=== PATIENT | female | born 1965 | race Caucasian/White ===

== ENCOUNTER → 2016-07-21 | Outpatient (CLI) | payer BC ==
[2016-07-21 14:25] LABS: Basophils # (A) 0.1 k/uL (0-0.2); Basophils % (A) 1 %; CH 30.6; CHCM 32.3; Eosinophils # (A) 0.4 k/uL (0-0.7); Eosinophils % (A) 4 %; HCT 47.4 % (34.0-46.0); HDW 2.59; HGB 15.1 gm/dL (11.4-16.0); Luc # (Auto) 0.25; Luc % (Auto) 3; Lymphocytes # (A) 2.3 k/uL (1.0-4.8); Lymphocytes % (A) 28 %; MCH 30.3 pg (25.0-35.0); MCHC 31.8 g/dL (31.0-37.0); MCV 95.2 fL (80.0-100.0); Mean Platelet Volume 7.9; Monocytes # (A) 0.4 k/uL (0-1.0); Monocytes % (A) 5 %; Neutrophils # (A) 4.9 k/uL (1.3-7.7); Neutrophils % (A) 59 %; RBC 4.98 m/uL (3.80-5.40); RDW 14.3 % (11.5-15.5); WBC 8.3 k/uL (3.8-10.6); WBC (Perox) 8.26
== END ==
LOC: LABWHC1 14:06
PROVIDERS: ATTEND Obstetrics & Gynecology
DX: Z01.818 Encounter for other preprocedural examination (principal)
CPT/HCPCS: 36415; 85025

== ENCOUNTER 2016-07-28 06:21 | Day surgery (SDC) | payer BC ==
[2016-07-24 14:24] VITALS: BMI 31.8
[~2016-07-28 06:21] MED LIST: DEXAMETHASONE SOD PHOSPHATE 10 MG/ML 1 ML VIAL IV ONE; HYDROmorphone 1 MG/ML 1 ML SYRINGE IVP PRN; LACTATED RINGERS 1,000 ML IV SCH; MIDAZOLAM 2 MG/2 ML VIAL IV PRN; ONDANSETRON 4 MG/2 ML VIAL IVP ONE; Pre Op ABX Message 1 EACH MISC MISCELLANE ONE; SCOPOLAMINE 1.5MG/72HR PATCH TRANSDERM ONE
[2016-07-28 06:51] VITALS: TEMP 97.7
--- NOTE | 2016-07-28 07:30 | HP ---
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 She is to be admitted for cervical cold knife cone biopsy for further diagnosis and treatment. She is postmenopausal with the last menstrual period in 2011. ALLERGIES: None. MEDICATIONS: 1. Aspirin 81 mg q. day. 2. Motrin p.r.n. 3. Omeprazole 10 mg q. day. PAST MEDICAL HISTORY: Reflux, PAST SURGICAL HISTORY: Tonsillectomy. PAST BLOCKER POLISHING HISTORY: She is a 1, para 1 with a history of one vaginal delivery. She had a last menstrual period in 2011. SOCIAL HISTORY: Negative for alcohol. She does smoke 1 pack of cigarettes per day. FAMILY HISTORY: Significant for diabetes and cancer. REVIEW OF SYSTEMS: Negative for vaginal discharge, postmenopausal bleeding, postcoital bleeding, pelvic or abdominal pain. PHYSICAL EXAMINATION: Blood pressure 142/88. Height 5 feet 2 inches. Weight 172 pounds. In general, this is a pleasant female in no apparent distress. HEENT exam is unremarkable with no palpable lymphadenopathy or thyromegaly. The lungs are clear to auscultation bilaterally. The heart is a regular rate and rhythm. The abdomen is soft and nontender with no rebound, no guarding, and no flank pain. Pelvic examination showed normal female external genitalia without lesions or irritation. On bimanual examination, uterus is small, freely mobile and in the midline. There are no palpable cervical masses. ASSESSMENT: A 51-year-old 1, para 1 woman with severe dysplasia on cervical biopsies, NICOLE-3. She is to undergo cervical cold knife cone biopsy. The risks of this procedure have been reviewed with the patient. Risks include but are not limited to bleeding, infection, transfusion, injury to the cervix and nearby structures including uterus, bowel or bladder. There are anesthesia complications and small risks of DVT. The patient understands these risks and agrees to proceed. She is scheduled for the above-named procedure on 07/28/2016.
[2016-07-28] MEDS ORDERED: KETOROLAC 30 MG/ML 1 ML VIAL ONE (07:32)
[2016-07-28] MEDS ORDERED: LIDOCAINE 1% INJ 10MG/ML (20 ML MDV) ONE (07:32)
[2016-07-28] MEDS ORDERED: PROPOFOL 10 MG/ML 20 ML VIAL IV ONE (07:32)
[2016-07-28] MEDS ORDERED: MIDAZOLAM 2 MG/2 ML VIAL ONE (07:32)
[2016-07-28] MEDS ORDERED: fentaNYL (PF) 50 MCG/ML 2 ML AMP ONE (07:32)
[2016-07-28] MEDS ORDERED: LIDOCAINE 1%-EPI 1:100,000 20 ML VIAL SQ ONE (07:53)
[2016-07-28] MEDS ORDERED: FERRIC SUBSULFATE (MONSELS) JAR TOPICAL ONE (07:59)
[2016-07-28] MEDS ORDERED: IODINE/POTASS IOD (LUGOLS) BTL TOPICAL ONE (07:59)
--- NOTE | 2016-07-28 08:01 | P.OP ---
Date of Procedure: 07/28/16 Preoperative Diagnosis: NICOLE-3 Postoperative Diagnosis: Same Anesthesia: MAC, local Surgeon: Shobha Pollard Estimated Blood Loss (ml): 15 IV fluids (ml): 400 Urine output (ml): 25 Pathology: other (Cervical biopsy) Condition: stable Disposition: PACU Operative Findings: Grossly normal-appearing cervix without visible lesions or abnormalities. Description of Procedure: After the patient was met preoperatively and all questions were answered, she was taken to the operating room where anesthetic was administered without incident. She was in positioned, prepped and draped in the dorsal lithotomy position. The bladder was drained for approximately 25 mL of clear urine. Single-sided speculum was placed in the vagina and the cervix was grasped anteriorly with a single-tooth tenaculum. Paracervical block with lidocaine plus epinephrine was placed in the usual fashion. Lugol solution was applied to the cervix to delineate the transformation zone. An 11 blade scalpel was then utilized to circumferentially excise the transformation zone angling in at the base to incorporate the endocervical canal. Specimen was taken in a single piece. The specimen was passed off as pathology. The base of the biopsy site was then cauterized as were the external edges. Monsel solution was then applied and hemostasis was noted. Instruments were then from the vagina and the patient was awoken from anesthetic without incident and transported to recovery area in stable condition. All counts reported to me as correct by the operating room staff.
[2016-07-28 08:58] VITALS: RESP 18
[2016-07-28 09:07] VITALS: BP 140/85; PULSE 75
== END 2016-07-28 09:30 | disposition home or self-care (01) ==
LOC: OR 06:21
PROVIDERS: ATTEND Obstetrics & Gynecology
DX: D06.7 Carcinoma in situ of other parts of cervix (principal); I10 Essential (primary) hypertension; F17.200 Nicotine dependence, unspecified, uncomplicated; F17.210 Nicotine dependence, cigarettes, uncomplicated; Z79.82 Long term (current) use of aspirin; Z79.899 Other long term (current) drug therapy
CPT/HCPCS: 88307; 57520; J2250; J1100; J2405; J2001; J3010; J1885; J2704

== ENCOUNTER 2018-12-19 17:51 | Emergency (ER) | payer BC ==
[2018-12-19 18:09] VITALS: RESP 18; TEMP 99.1
[2018-12-19 18:31] LABS: Basophils # (A) 0.1 k/uL (0-0.2); Basophils % (A) 1 %; Eosinophils # (A) 0.5 k/uL (0-0.7); Eosinophils % (A) 4 %; HCT 45.2 % (34.0-46.0); HGB 14.6 gm/dL (11.4-16.0); Lymphocytes # (A) 2.4 k/uL (1.0-4.8); Lymphocytes % (A) 21 %; MCH 30.2 pg (25.0-35.0); MCHC 32.4 g/dL (31.0-37.0); MCV 93.4 fL (80.0-100.0); Mean Platelet Volume 7.1; Monocytes # (A) 0.5 k/uL (0-1.0); Monocytes % (A) 4 %; Neutrophils # (A) 8.2 k/uL (1.3-7.7); Neutrophils % (A) 70 %; Platelet Count 195 k/uL (150-450); RBC 4.84 m/uL (3.80-5.40); RDW 14.6 % (11.5-15.5); WBC 11.8 k/uL (3.8-10.6)
[2018-12-19 18:39] LABS: INR 0.9 (<1.2); Partial Thromboplastin Time 24.7 sec (22.0-30.0); Prothrombin Time 10.1 sec (9.0-12.0)
[2018-12-19 18:40] LABS: ALT 75 U/L (9-52); AST 120 U/L (14-36); African American GFR (CKD) >90 (>60 ml/min/1.73 sqM); Albumin 4.7 g/dL (3.5-5.0); Alkaline Phosphatase 74 U/L (38-126); Anion Gap 11 mmol/L; Blood Urea Nitrogen 20 mg/dL (7-17); Calcium 10.2 mg/dL (8.4-10.2); Carbon Dioxide 30 mmol/L (22-30); Chloride 103 mmol/L (98-107); Glucose 99 mg/dL (74-99); Potassium 3.9 mmol/L (3.5-5.1); Sodium 144 mmol/L (137-145); Total Bilirubin 0.7 mg/dL (0.2-1.3); Total Protein 8.1 g/dL (6.3-8.2)
--- NOTE | 2018-12-19 19:06 | ED ---
General Adult HPI - General Chief complaint: GI Bleed Stated complaint: abdominal pain/rectal bleeding Time Seen by Provider: 12/19/18 18:12 Source: patient Mode of arrival: ambulatory Limitations: no limitations - History of Present Illness Initial comments: Dictation was produced using [employer] dictation software. please excuse any gra mmatical, word or spelling errors. Chief Complaint: 53-year-old female with bright red blood per rectum and left lower quadrant abdominal pain. History of Present Illness: Patient's 53-year-old female she has chief complaint today of bright blood per rectum. Patient states her symptoms began yesterday. She began feeling slightly lightheaded. Patient had multiple episodes of light red blood per rectum including loose blood and blood clots. She also has left lower quadrant abdominal cramping. Patient has no history of diverticulitis. Denies any fever, chills or night sweats. The ROS documented in this emergency department record has been reviewed and confirmed by me. Those systems with pertinent positive or negative responses have been documented in the HPI. All other systems are other negative and/or noncontributory. PHYSICAL EXAM: General Impression: Alert and oriented x3, not in acute distress HEENT: Normocephalic atraumatic, extra-ocular movements intact, pupils equal and reactive to light bilaterally, mucous membranes moist. Cardiovascular: Heart regular rate and rhythm, S1&S2 audible, no murmurs, rubs or gallops Chest: Lungs clear to auscultation bilaterally, no rhonchi, no wheeze, no rales Abdomen: Tenderness to the left lower quadrant with palpation, positive bowel sounds Musculoskeletal: Pulses present and equal in all extremities, no peripheral edema Motor: no focal deficits noted Neurological: CN II-XII grossly intact, no focal motor or sensory deficits noted Skin: Intact with no visualized rashes Psych: Normal affect and mood Rectal exam: No fissures no hemorrhoids, digital rectal exam is positive for gross blood, no palpable mass in the rectal vault. Laboratory evaluation obtained. Mild symptoms along 0.8, hemoglobin stable at 14.6. Coag panel unremarkable. panel is nonacute. so, blows is positive. et scan of the abdomen and pelvis with contrast shows diverticulitis. she reevaluated bedside found with stable medical condition. patient will be discharged with prescription for antibiotics, analgesics and antiemetics. patient told to return to emergency department with constitutional symptoms and worsening abdominal pain otherwise she is distracted to follow-up with her primary care physician sometime later this week. ED course: 53-year-old female presents with bright red blood per rectum and left lower quadrant abdominal pain. Vital signs upon arrival are within acceptable limits. Given patient's left lower quadrant abdominal pain there is concern for bleeding diverticulitis. - Related Data Home Medications Medication Instructions Recorded Confirmed Hydrochlorothiazide [Hydrodiuril] 25 mg PO DAILY 12/19/18 12/19/18 Omeprazole [PriLOSEC] 20 mg PO DAILY PRN 12/19/18 12/19/18 Previous Rx's Medication Instructions Recorded Ciprofloxacin HCl 500 mg PO BID 14 Days #28 tab 12/19/18 HYDROcodone/APAP 5-325MG [Henderson 1 tab PO Q6HR PRN 3 Days #12 tab 12/19/18 5-325] Ondansetron Odt [Zofran Odt] 4 mg PO Q8HR PRN #12 tab 12/19/18 metroNIDAZOLE [Flagyl] 500 mg PO TID 14 Days #42 tab 12/19/18 Allergies Allergy/AdvReac Type Severity Reaction Status Date / Time adhesive tape AdvReac PEELED SKIN Verified 12/19/18 18:38 Review of Systems ROS Statement: Those systems with pertinent positive or pertinent negative responses have been documented in the HPI. ROS Other: All systems not noted in ROS Statement are negative. Past Medical History Past Medical History: GERD/Reflux History of Any Multi-Drug Resistant Organisms: None Reported Past Surgical History: Adenoidectomy, Orthopedic Surgery, Tonsillectomy Additional Past Surgical History / Comment(s): LEFT ANKLE ORIF Past Anesthesia/Blood Transfusion Reactions: Postoperative Nausea & Vomiting (PONV) Additional Past Anesthesia/Blood Transfusion Reaction / Comment(s): POST OP ORIF Past Psychological History: No Psychological Hx Reported Smoking Status: Current every day smoker Past Alcohol Use History: Occasional Past Drug Use History: Marijuana - Past Family History Father Family Medical History: Cancer Additional Family Medical History / Comment(s): MULT. MYELOMA Brother(s) Family Medical History: Cancer Additional Family Medical History / Comment(s): LYMPHOMA General Exam Limitations: no limitations Course Vital Signs 12/19/18 12/19/18 18:07 18:59 Temperature 99.1 F Pulse Rate 90 85 Respiratory 18 18 Rate Blood Pressure 127/77 134/82 O2 Sat by Pulse 95 95 Oximetry Medical Decision Making - Lab Data Result diagrams: 12/19/18 18:21 12/19/18 18:21 Lab Results 12/19/18 12/19/18 12/19/18 Range/Units 18:21 18:21 18:21 WBC 11.8 H (3.8-10.6) k/uL RBC 4.84 (3.80-5.40) m/uL Hgb 14.6 (11.4-16.0) gm/dL Hct 45.2 (34.0-46.0) % MCV 93.4 (80.0-100.0) fL MCH 30.2 (25.0-35.0) pg MCHC 32.4 (31.0-37.0) g/dL RDW 14.6 (11.5-15.5) % Plt Count 195 (150-450) k/uL Neutrophils % 70 % Lymphocytes % 21 % Monocytes % 4 % Eosinophils % 4 % Basophils % 1 % Neutrophils # 8.2 H (1.3-7.7) k/uL Lymphocytes # 2.4 (1.0-4.8) k/uL Monocytes # 0.5 (0-1.0) k/uL Eosinophils # 0.5 (0-0.7) k/uL Basophils # 0.1 (0-0.2) k/uL PT 10.1 (9.0-12.0) sec INR 0.9 (<1.2) APTT 24.7 (22.0-30.0) sec Sodium 144 (137-145) mmol/L Potassium 3.9 (3.5-5.1) mmol/L Chloride 103 (98-107) mmol/L Carbon Dioxide 30 (22-30) mmol/L Anion Gap 11 mmol/L BUN 20 H (7-17) mg/dL Creatinine 0.64 (0.52-1.04) mg/dL Est GFR (CKD-EPI)AfAm >90 (>60 ml/min/1.73 sqM) Est GFR (CKD-EPI)NonAf >90 (>60 ml/min/1.73 sqM) Glucose 99 (74-99) mg/dL Calcium 10.2 (8.4-10.2) mg/dL Total Bilirubin 0.7 (0.2-1.3) mg/dL AST 120 H (14-36) U/L ALT 75 H (9-52) U/L Alkaline Phosphatase 74 (38-126) U/L Troponin I (0.000-0.034) ng/mL Total Protein 8.1 (6.3-8.2) g/dL Albumin 4.7 (3.5-5.0) g/dL Stool Occult Blood (Negative) Blood Type Blood Type Confirm Blood Type Recheck Antibody Screen Spec Expiration Date 12/19/18 12/19/18 12/19/18 Range/Units 18:21 18:21 18:43 WBC (3.8-10.6) k/uL RBC (3.80-5.40) m/uL Hgb (11.4-16.0) gm/dL Hct (34.0-46.0) % MCV (80.0-100.0) fL MCH (25.0-35.0) pg MCHC (31.0-37.0) g/dL RDW (11.5-15.5) % Plt Count (150-450) k/uL Neutrophils % % Lymphocytes % % Monocytes % % Eosinophils % % Basophils % % Neutrophils # (1.3-7.7) k/uL Lymphocytes # (1.0-4.8) k/uL Monocytes # (0-1.0) k/uL Eosinophils # (0-0.7) k/uL Basophils # (0-0.2) k/uL PT (9.0-12.0) sec INR (<1.2) APTT (22.0-30.0) sec Sodium (137-145) mmol/L Potassium (3.5-5.1) mmol/L Chloride (98-107) mmol/L Carbon Dioxide (22-30) mmol/L Anion Gap mmol/L BUN (7-17) mg/dL Creatinine (0.52-1.04) mg/dL Est GFR (CKD-EPI)AfAm (>60 ml/min/1.73 sqM) Est GFR (CKD-EPI)NonAf (>60 ml/min/1.73 sqM) Glucose (74-99) mg/dL Calcium (8.4-10.2) mg/dL Total Bilirubin (0.2-1.3) mg/dL AST (14-36) U/L ALT (9-52) U/L Alkaline Phosphatase (38-126) U/L Troponin I <0.012 (0.000-0.034) ng/mL Total Protein (6.3-8.2) g/dL Albumin (3.5-5.0) g/dL Stool Occult Blood Positive H (Negative) Blood Type A Positive Blood Type Confirm Blood Type Recheck CABO Indicated Antibody Screen NEGATIVE Spec Expiration Date 12/22/2018 - 232012/19/18 Range/Units 19:36 WBC (3.8-10.6) k/uL RBC (3.80-5.40) m/uL Hgb (11.4-16.0) gm/dL Hct (34.0-46.0) % MCV (80.0-100.0) fL MCH (25.0-35.0) pg MCHC (31.0-37.0) g/dL RDW (11.5-15.5) % Plt Count (150-450) k/uL Neutrophils % % Lymphocytes % % Monocytes % % Eosinophils % % Basophils % % Neutrophils # (1.3-7.7) k/uL Lymphocytes # (1.0-4.8) k/uL Monocytes # (0-1.0) k/uL Eosinophils # (0-0.7) k/uL Basophils # (0-0.2) k/uL PT (9.0-12.0) sec INR (<1.2) APTT (22.0-30.0) sec Sodium (137-145) mmol/L Potassium (3.5-5.1) mmol/L Chloride (98-107) mmol/L Carbon Dioxide (22-30) mmol/L Anion Gap mmol/L BUN (7-17) mg/dL Creatinine (0.52-1.04) mg/dL Est GFR (CKD-EPI)AfAm (>60 ml/min/1.73 sqM) Est GFR (CKD-EPI)NonAf (>60 ml/min/1.73 sqM) Glucose (74-99) mg/dL Calcium (8.4-10.2) mg/dL Total Bilirubin (0.2-1.3) mg/dL AST (14-36) U/L ALT (9-52) U/L Alkaline Phosphatase (38-126) U/L Troponin I (0.000-0.034) ng/mL Total Protein (6.3-8.2) g/dL Albumin (3.5-5.0) g/dL Stool Occult Blood (Negative) Blood Type Blood Type Confirm A Positive Blood Type Recheck Antibody Screen Spec Expiration Date Disposition Clinical Impression: Diverticulitis of colon with bleeding Disposition: HOME SELF-CARE Condition: Good Instructions (If sedation given, give patient instructions): Gastrointestinal Bleeding (ED), Diverticulitis (ED) Prescriptions: Ciprofloxacin HCl 500 mg PO BID 14 Days #28 tab metroNIDAZOLE [Flagyl] 500 mg PO TID 14 Days #42 tab HYDROcodone/APAP 5-325MG [Henderson 5-325] 1 tab PO Q6HR PRN 3 Days #12 tab PRN Reason: Severe Pain Ondansetron Odt [Zofran Odt] 4 mg PO Q8HR PRN #12 tab PRN Reason: Nausea Is patient prescribed a controlled substance at d/c from ED?: Yes If prescribed controlled substance>3 days was MAPS reviewed?: Prescribed <3 Days Referrals: Orion Jernigan DO [Primary Care Provider] - 1-2 days Dave Upton MD [STAFF PHYSICIAN] - 1-2 days Time of Disposition: 20:41
--- NOTE | 2018-12-19 19:51 | CT ---
EXAMINATION TYPE: CT abdomen pelvis w con DATE OF EXAM: 12/19/2018 COMPARISON: None HISTORY: Abdomen pain & rectal bleeding-bright red CT DLP: 1041.2 mGycm Automated exposure control for dose reduction was used. TECHNIQUE: Helical acquisition of images was performed from the lung bases through the pelvis. CONTRAST: Performed without Oral Contrast and with IV Contrast, patient injected with 100 mL of Isovue 300. FINDINGS: There is mild subsegmental atelectasis at the left lung base. There is no pleural effusion. Heart siz e is normal. Stomach liver spleen pancreas gallbladder appear normal. Bile ducts are not dilated. There is no adre nal mass. Kidneys show satisfactory contrast opacification. There is no hydronephrosis. Ureters are n ot dilated. Appendix appears normal. Bladder distends smoothly. There is no inguinal hernia. There is small amount of free fluid in the pe lvis. There is fat stranding and wall thickening around the proximal sigmoid colon. I see no signific ant diverticular disease. There is no evidence of free air. There is no evidence of a bowel obstruction. Lumbar spine appears intact. Bony pelvis is intact. IMPRESSION: PROXIMAL SIGMOID COLON WALL THICKENING AND PERICOLIC EDEMA CONSISTENT WITH DIVERTICULITIS OR ACUTE CO LITIS. MINIMAL FREE FLUID. NO ABSCESS. NORMAL APPENDIX.
[2018-12-19 20:54] VITALS: BP 147/81; PULSE 84
== END 2018-12-19 20:54 | disposition home or self-care (01) ==
LOC: EC 17:51
DX: K57.33 Diverticulitis of large intestine without perforation or abscess with bleeding (principal); K21.9 Gastro-esophageal reflux disease without esophagitis; F17.200 Nicotine dependence, unspecified, uncomplicated; Z79.899 Other long term (current) drug therapy; Z91.048 Other nonmedicinal substance allergy status
CPT/HCPCS: 36415; 86900; 86901; 80053; 84484; 85025; 85610; 85730; 86850; 82272; 74177; 99284; Q9967

== ENCOUNTER 2019-02-09 04:51 | Inpatient (IN) | payer BC ==
[2019-02-09 05:03] LABS: Glucose,Whole Blood 146 mg/dL (75-99)
[2019-02-09] MEDS ORDERED: SODIUM CHLORIDE 0.9% 1,000 ML IV STA (05:10)
[2019-02-09 05:22] LABS: Basophils % (A) 0 %; Eosinophils # (A) 0.2 k/uL (0-0.7); Eosinophils % (A) 2 %; HCT 40.8 % (34.0-46.0); HGB 13.8 gm/dL (11.4-16.0); Lymphocytes # (A) 1.8 k/uL (1.0-4.8); Lymphocytes % (A) 19 %; MCH 30.4 pg (25.0-35.0); MCHC 33.7 g/dL (31.0-37.0); MCV 90.1 fL (80.0-100.0); Mean Platelet Volume 6.5; Monocytes # (A) 0.4 k/uL (0-1.0); Monocytes % (A) 4 %; Neutrophils # (A) 6.7 k/uL (1.3-7.7); Neutrophils % (A) 73 %; Platelet Count 196 k/uL (150-450); RBC 4.53 m/uL (3.80-5.40); RDW 14.1 % (11.5-15.5); WBC 9.2 k/uL (3.8-10.6)
--- NOTE | 2019-02-09 05:23 | ED ---
Seizure HPI - General Chief Complaint: Seizure Stated Complaint: Altered Mental Status Time Seen by Provider: 02/09/19 04:54 Source: patient Mode of arrival: EMS Limitations: no limitations - History of Present Illness Initial Comments: Cher is a 83-year-old female who presents the ER today via EMS after a possible seizure at home. Patient has minimal recall of events leading up to hospitalization and in fact minimal recall of events of yesterday evening. History was provided primarily by her at bedside. reports that yesterday evening was a normal evening for them, she came home from work a little after 4 PM, they had dinner and then she had 5 or 6 beers which is not atypical. He reports that around 10 PM he went to bed and Cher remained on the couch. Around 4 AM their daughter woke him up stating that she found her mom laying on the floor with irregular breathing and she could not wake her up. attempted to wake the patient up and reports that for approximately 5 minutes she had irregular breathing and would not wake up. EMS was contacted. reports that once Cher woke up she seemed confused and disoriented however she gradually became more awake and alert. Patient has no history of seizure disorder. She reports she drinks alcohol regularly but not every day, she has no history of withdraw symptoms. - Related Data Home Medications Medication Instructions Recorded Confirmed Hydrochlorothiazide [Hydrodiuril] 25 mg PO DAILY 12/19/18 12/19/18 Omeprazole [PriLOSEC] 20 mg PO DAILY PRN 12/19/18 12/19/18 Allergies Allergy/AdvReac Type Severity Reaction Status Date / Time adhesive tape AdvReac PEELED SKIN Verified 02/09/19 05:03 Review of Systems ROS Statement: Those systems with pertinent positive or pertinent negative responses have been documented in the HPI. ROS Other: All systems not noted in ROS Statement are negative. Past Medical History Past Medical History: GERD/Reflux History of Any Multi-Drug Resistant Organisms: None Reported Past Surgical History: Adenoidectomy, Orthopedic Surgery, Tonsillectomy Additional Past Surgical History / Comment(s): LEFT ANKLE ORIF Past Anesthesia/Blood Transfusion Reactions: Postoperative Nausea & Vomiting (PONV) Additional Past Anesthesia/Blood Transfusion Reaction / Comment(s): POST OP ORIF Past Psychological History: No Psychological Hx Reported Smoking Status: Current every day smoker Past Alcohol Use History: Occasional Past Drug Use History: Marijuana - Past Family History Father Family Medical History: Cancer Additional Family Medical History / Comment(s): MULT. MYELOMA Brother(s) Family Medical History: Cancer Additional Family Medical History / Comment(s): LYMPHOMA General Exam - General Exam Comments Initial Comments: Physical Exam GENERAL: Patient is well-developed and well-nourished. Patient is nontoxic and well- hydrated and is in no distress. HENT: Normocephalic, Atraumatic. Normal dentition No evidence of tongue biting EYES: PERRL, EOMI PULMONARY: Unlabored respirations. No audible rales rhonchi or wheezing was noted. CARDIOVASCULAR: There is a regular rate and rhythm without any murmurs gallops or rubs. ABDOMEN: Soft and nontender with normal bowel sounds. SKIN: Skin is clear with no lesions or rashes and otherwise unremarkable. : Deferred Patient had loss of bladder continence NEUROLOGIC: Patient is alert and oriented x3. Moving all extremities spontaneously MUSCULOSKELETAL: Normal extremities with adequate strength and full range of motion. No lower extremity swelling or edema. No calf tenderness. PSYCHIATRIC: Normal psychiatric evaluation. Limitations: no limitations Course Vital Signs 02/09/19 04:54 Temperature 98.5 F Pulse Rate 99 Respiratory 18 Rate Blood Pressure 145/88 O2 Sat by Pulse 95 Oximetry Medical Decision Making - Medical Decision Making The patient was seen and evaluated, history is obtained from the EMS crew and at bedside. Patient is postictal and has minimal recall of the event. Patient with no history of seizures seems to have had a seizure during the night, uncertain of when onset was but has been witnessed 3-5 minutes of seizure activity. Labs and imaging ordered CT head with no acute findings Labs consistent with seizure activity, patient has elevated lactic acid likely secondary to muscle activity during seizure. Additional IV fluids ordered. Patient is mildly hypokalemic, by mouth replacement was ordered. Since primary care physician Dr. Jernigan has no admission preference here, patient will be admitted to medicine on-call. Patient care was discussed with Dr. Jenkins who agrees with plan for admission, IV fluids, seizure precautions, neurology consult. The patient's lactic acid is elevated at greater than 6 however this is secondary to seizure activity and not sepsis or hypoperfusion at this time. I do not feel the patient warrants admission to the ICU. - Lab Data Result diagrams: 02/09/19 04:57 02/09/19 04:57 Lab Results 02/09/19 02/09/19 02/09/19 Range/Units 04:57 04:57 04:57 WBC 9.2 (3.8-10.6) k/uL RBC 4.53 (3.80-5.40) m/uL Hgb 13.8 (11.4-16.0) gm/dL Hct 40.8 (34.0-46.0) % MCV 90.1 (80.0-100.0) fL MCH 30.4 (25.0-35.0) pg MCHC 33.7 (31.0-37.0) g/dL RDW 14.1 (11.5-15.5) % Plt Count 196 (150-450) k/uL Neutrophils % 73 % Lymphocytes % 19 % Monocytes % 4 % Eosinophils % 2 % Basophils % 0 % Neutrophils # 6.7 (1.3-7.7) k/uL Lymphocytes # 1.8 (1.0-4.8) k/uL Monocytes # 0.4 (0-1.0) k/uL Eosinophils # 0.2 (0-0.7) k/uL Basophils # 0.0 (0-0.2) k/uL Sodium 134 L (137-145) mmol/L Potassium 3.4 L (3.5-5.1) mmol/L Chloride 96 L (98-107) mmol/L Carbon Dioxide 18 L (22-30) mmol/L Anion Gap 20 mmol/L BUN 13 (7-17) mg/dL Creatinine 0.63 (0.52-1.04) mg/dL Est GFR (CKD-EPI)AfAm >90 (>60 ml/min/1.73 sqM) Est GFR (CKD-EPI)NonAf >90 (>60 ml/min/1.73 sqM) Glucose 145 H (74-99) mg/dL POC Glucose (mg/dL) (75-99) mg/dL POC Glu Mobile Device Developer ID Plasma Lactic Acid Raj 6.3 H* (0.7-2.0) mmol/L Calcium 9.5 (8.4-10.2) mg/dL Total Bilirubin 0.4 (0.2-1.3) mg/dL AST 58 H (14-36) U/L ALT 52 (9-52) U/L Alkaline Phosphatase 70 (38-126) U/L Total Protein 7.8 (6.3-8.2) g/dL Albumin 4.6 (3.5-5.0) g/dL Urine Color Urine Appearance (Clear) Urine pH (5.0-8.0) Ur Specific Conklin (1.001-1.035) Urine Protein (Negative) Urine Glucose (UA) (Negative) Urine Ketones (Negative) Urine Blood (Negative) Urine Nitrite (Negative) Urine Bilirubin (Negative) Urine Urobilinogen (<2.0) mg/dL Ur Leukocyte Esterase (Negative) Urine RBC (0-5) /hpf Urine WBC (0-5) /hpf Ur Squamous Epith Cells (0-4) /hpf Urine Mucus (None) /hpf Urine Opiates Screen (NotDetected) Ur Oxycodone Screen (NotDetected) Urine Methadone Screen (NotDetected) Ur Propoxyphene Screen (NotDetected) Ur Barbiturates Screen (NotDetected) U Tricyclic Antidepress (NotDetected) Ur Phencyclidine Scrn (NotDetected) Ur Amphetamines Screen (NotDetected) U Methamphetamines Scrn (NotDetected) U Benzodiazepines Scrn (NotDetected) Urine Cocaine Screen (NotDetected) U Marijuana (THC) Screen (NotDetected) 02/09/19 02/09/19 02/09/19 Range/Units 05:00 05:23 05:23 WBC (3.8-10.6) k/uL RBC (3.80-5.40) m/uL Hgb (11.4-16.0) gm/dL Hct (34.0-46.0) % MCV (80.0-100.0) fL MCH (25.0-35.0) pg MCHC (31.0-37.0) g/dL RDW (11.5-15.5) % Plt Count (150-450) k/uL Neutrophils % % Lymphocytes % % Monocytes % % Eosinophils % % Basophils % % Neutrophils # (1.3-7.7) k/uL Lymphocytes # (1.0-4.8) k/uL Monocytes # (0-1.0) k/uL Eosinophils # (0-0.7) k/uL Basophils # (0-0.2) k/uL Sodium (137-145) mmol/L Potassium (3.5-5.1) mmol/L Chloride (98-107) mmol/L Carbon Dioxide (22-30) mmol/L Anion Gap mmol/L BUN (7-17) mg/dL Creatinine (0.52-1.04) mg/dL Est GFR (CKD-EPI)AfAm (>60 ml/min/1.73 sqM) Est GFR (CKD-EPI)NonAf (>60 ml/min/1.73 sqM) Glucose (74-99) mg/dL POC Glucose (mg/dL) 146 H (75-99) mg/dL POC Glu Mobile Device Developer ID Nyasia Rooney Plasma Lactic Acid Raj (0.7-2.0) mmol/L Calcium (8.4-10.2) mg/dL Total Bilirubin (0.2-1.3) mg/dL AST (14-36) U/L ALT (9-52) U/L Alkaline Phosphatase (38-126) U/L Total Protein (6.3-8.2) g/dL Albumin (3.5-5.0) g/dL Urine Color Light Yellow Urine Appearance Clear (Clear) Urine pH 5.5 (5.0-8.0) Ur Specific Conklin 1.017 (1.001-1.035) Urine Protein Trace H (Negative) Urine Glucose (UA) Negative (Negative) Urine Ketones 1+ H (Negative) Urine Blood Trace H (Negative) Urine Nitrite Negative (Negative) Urine Bilirubin Negative (Negative) Urine Urobilinogen <2.0 (<2.0) mg/dL Ur Leukocyte Esterase Negative (Negative) Urine RBC 1 (0-5) /hpf Urine WBC <1 (0-5) /hpf Ur Squamous Epith Cells 1 (0-4) /hpf Urine Mucus Occasional H (None) /hpf Urine Opiates Screen Not Detected (NotDetected) Ur Oxycodone Screen Not Detected (NotDetected) Urine Methadone Screen Not Detected (NotDetected) Ur Propoxyphene Screen Not Detected (NotDetected) Ur Barbiturates Screen Not Detected (NotDetected) U Tricyclic Antidepress Not Detected (NotDetected) Ur Phencyclidine Scrn Not Detected (NotDetected) Ur Amphetamines Screen Not Detected (NotDetected) U Methamphetamines Scrn Not Detected (NotDetected) U Benzodiazepines Scrn Not Detected (NotDetected) Urine Cocaine Screen Not Detected (NotDetected) U Marijuana (THC) Screen Detected H (NotDetected) - EKG Data EKG Comments: KG was obtained due to complaint of new onset seizure. EKG was obtained at 4:59 AM, rate is 95 rhythm is sinus there is normal axis, there are normal intervals, WA 140, QRS 96, QTC is 459. There are no acute ST elevations mild ST depressions laterally. However patient is having no chest pain. Disposition Clinical Impression: New onset seizure Disposition: ADMITTED IP TO THIS HOSP Condition: Stable Referrals: Orion Jernigan DO [Primary Care Provider] - 1-2 days
[2019-02-09 05:46] LABS: ALT 52 U/L (9-52); AST 58 U/L (14-36); African American GFR (CKD) >90 (>60 ml/min/1.73 sqM); Albumin 4.6 g/dL (3.5-5.0); Alkaline Phosphatase 70 U/L (38-126); Anion Gap 20 mmol/L; Blood Urea Nitrogen 13 mg/dL (7-17); Calcium 9.5 mg/dL (8.4-10.2); Carbon Dioxide 18 mmol/L (22-30); Chloride 96 mmol/L (98-107); Glucose 145 mg/dL (74-99); Non-African American GFR(CKD) >90 (>60 ml/min/1.73 sqM); Potassium 3.4 mmol/L (3.5-5.1); Sodium 134 mmol/L (137-145); Total Bilirubin 0.4 mg/dL (0.2-1.3); Total Protein 7.8 g/dL (6.3-8.2)
[2019-02-09 05:47] LABS: Appearance,Urine Clear (Clear); Bilirubin,Urine Negative (Negative); Blood,Urine Trace (Negative); Color,Urine Light Yellow; Glucose,Urine (UA) Negative (Negative); Ketones,Urine 1+ (Negative); Leukocyte Esterase,Urine Negative (Negative); Mucus,Urine Occasional /hpf; Nitrite,Urine Negative (Negative); PH, Urine 5.5 (5.0-8.0); Protein,Urine Trace (Negative); RBC,Urine 1 /hpf (0-5); Specific Gravity,Urine 1.017 (1.001-1.035); Squamous Epithelial Cell,Urine 1 /hpf (0-4); Urobilinogen,Urine <2.0 mg/dL (<2.0); WBC,Urine <1 /hpf (0-5)
--- NOTE | 2019-02-09 05:58 | CT ---
EXAM: CT Head Without Intravenous Contrast CLINICAL HISTORY: Seizure activity. TECHNIQUE: Axial computed tomography images of the head/brain without intravenous contrast. CTDI is 49.27 mGy and DLP is 1005.4 mGy-cm. This CT exam was performed using one or more of the following dose reduction techniques: automated exposure control, adjustment of the mA and/or kV according to patient size, and/or use of iterative reconstruction technique. COMPARISON: No relevant prior studies available. FINDINGS: Brain: Unremarkable. No hemorrhage. No significant white matter disease. No edema. Ventricles: Unremarkable. No ventriculomegaly. Bones/joints: Unremarkable. No acute fracture. Soft tissues: Unremarkable. Sinuses: Unremarkable as visualized. No acute sinusitis. Mastoid air cells: Unremarkable as visualized. No mastoid effusion. IMPRESSION: No evidence of acute intracranial pathology.
[2019-02-09] MEDS ORDERED: Potassium Replacement Protocol 1 EACH MISC MISCELLANE PRN (06:09)
[2019-02-09 06:15] LABS: Amphetamine Screen,Urine Not Detected (NotDetected); Barbiturate Screen,Urine Not Detected (NotDetected); Benzodiazepines Screen,Urine Not Detected (NotDetected); Cocaine Screen,Urine Not Detected (NotDetected); Methadone Screen, Urine Not Detected (NotDetected); Opiate Screen,Urine Not Detected (NotDetected); Oxycodone Screen, Urine Not Detected (NotDetected); Phencyclidine Screen,Urine Not Detected (NotDetected); Tricyclic Antidepressant,Urine Not Detected (NotDetected); Urn Cannabinoid Scrn Detected (NotDetected)
[2019-02-09] MEDS ORDERED: SODIUM CHLORIDE 0.9% 2,000 ML IV ONE (06:23)
[2019-02-09] MEDS ORDERED: NALOXONE 0.4 MG/ML 1 ML VIAL IV PRN (06:33)
[2019-02-09] MEDS: POTASSIUM CHLORIDE ER 20 MEQ TAB.ER PO SCH ×2 (08:47→11:57)
[2019-02-09] MEDS ORDERED: PNEUMOCOCCAL VACC-PNEUMOVAX 23 25 MCG/0.5 ML VIAL IM ONE (09:44)
[2019-02-09] MEDS ORDERED: INFLUENZA VACCINE (6 MOS+) 60 MCG/0.5 ML SYRINGE IM ONE (09:44)
[2019-02-09] MEDS: SODIUM CHLORIDE 0.9% 1,000 ML IV SCH ×2 (11:58→17:03)
[2019-02-09] MEDS ORDERED: LORazepam 2 MG/ML INJ IV PRN ×3 (12:04)
--- NOTE | 2019-02-09 12:06 | P.HPIM ---
History of Present Illness H&P Date: 02/09/19 Chief Complaint: Altered mental status 53-year-old female with PMH of hypertension and diverticulosis presents to the ED for altered mental status. Patient does not remember any of the events prior to admission. Patient states the last thing that she remembers was laying down on the couch and watching [place]. Apparently, her daughter heard a thump and attended to her mother. Patient was found down with irregular breathing. Patient also reports that she had one episode of bladder incontinence during this time. There were no bystanders to witness the syncopal episode. Patient states that she was confused when she woke up in the ambulance. She did not know what year it was or her age. Her confusion gradually improved, back to baseline while in the ED. Patient really complains of some neck and Muscle soreness. She denies any headaches, lower extremity edema, nausea or vomiting, fever or chills, cough, chest pain or shortness of breath, palpitations, changes in urination or bowel habits. No changes in appetite or weight. Patient denies any dizziness, numbness/weakness/tingling of the extremities. Of note, patient reports drinking 3-4 times a week, 7-8 beers each time. She denies any illicit drug use. Patient denies any recent stressors. She denies any insomnia. In the ED, her vital signs were stable. CBC was unremarkable. CMP showed sodium of 134, potassium 3.4, chloride 96, bicarbonate 18, glucose 145. Lactic acid was 6.3. AST was 58. Urinalysis showed trace blood. UDS positive for marijuana. CT brain negative. EKG showed normal sinus rhythm with ST changes. Patient is admitted for new onset seizure with neurology on consult. Review of Systems Pertinent positives and negatives as discussed in HPI, a complete review of systems was performed and all other systems are negative. Past Medical History Past Medical History: GERD/Reflux, Hypertension, Osteoarthritis (OA) Additional Past Medical History / Comment(s): Diverticular disease, arthritis bilateral hands/back History of Any Multi-Drug Resistant Organisms: None Reported Past Surgical History: Adenoidectomy, Orthopedic Surgery, Tonsillectomy Additional Past Surgical History / Comment(s): LEFT ANKLE ORIF, cold knife conization of cervix, colonoscopy. Past Anesthesia/Blood Transfusion Reactions: Postoperative Nausea & Vomiting (PONV) Additional Past Anesthesia/Blood Transfusion Reaction / Comment(s): POST OP ORIF Smoking Status: Current every day smoker - Past Family History Father Family Medical History: Cancer Additional Family Medical History / Comment(s): MULT. MYELOMA Brother(s) Family Medical History: Cancer Additional Family Medical History / Comment(s): LYMPHOMA Mother Family Medical History: Renal Disease Medications and Allergies Home Medications Medication Instructions Recorded Confirmed Type Hydrochlorothiazide [Hydrodiuril] 25 mg PO DAILY 12/19/18 02/09/19 History Omeprazole [PriLOSEC] 20 mg PO DAILY PRN 12/19/18 02/09/19 History Ibuprofen [Motrin] 800 mg PO Q6H PRN 02/09/19 02/09/19 History Allergies Allergy/AdvReac Type Severity Reaction Status Date / Time adhesive tape AdvReac PEELED SKIN Verified 02/09/19 07:15 Physical Exam Vitals: Vital Signs Temp Pulse Resp BP Pulse Ox 02/09/19 07:00 87 18 127/65 96 02/09/19 06:00 86 18 149/88 97 02/09/19 05:30 89 18 145/84 96 02/09/19 04:54 98.5 F 99 18 145/88 95 Intake and Output 02/08/19 02/09/19 02/09/19 22:59 06:59 14:59 Other: Weight 81.647 kg General: [non toxic], [no distress], [appears at stated age] Derm: [warm], [dry] Head: [atraumatic], [normocephalic], [symmetric] Eyes: [EOMI], [no lid lag], [anicteric sclera] Mouth: [no lip lesion], [mucus membranes moist] Cardiovascular: [S1S2 reg], [no murmur], [positive DP pulse bilateral], Lungs: [CTA bilateral], [no rhonchi, no rales] , [no accessory muscle use] Abdominal: [soft], [ nontender to palpation], [no guarding], [no appreciable org anomegaly] Ext: [no gross muscle atrophy], [no edema], [no contractures] Neuro: [ CN II-XI grossly intact], [no focal neuro deficits] Psych: [Alert], [oriented], [appropriate affect] Results CBC & Chem 7: 02/09/19 04:57 02/09/19 04:57 Labs: Abnormal Lab Results - Last 24 Hours (Table) 02/09/19 02/09/19 02/09/19 Range/Units 04:57 04:57 05:00 Sodium 134 L (137-145) mmol/L Potassium 3.4 L (3.5-5.1) mmol/L Chloride 96 L (98-107) mmol/L Carbon Dioxide 18 L (22-30) mmol/L Glucose 145 H (74-99) mg/dL POC Glucose (mg/dL) 146 H (75-99) mg/dL Plasma Lactic Acid Raj 6.3 H* (0.7-2.0) mmol/L AST 58 H (14-36) U/L Urine Protein (Negative) Urine Ketones (Negative) Urine Blood (Negative) Urine Mucus (None) /hpf U Marijuana (THC) Screen (NotDetected) 02/09/19 02/09/19 Range/Units 05:23 05:23 Sodium (137-145) mmol/L Potassium (3.5-5.1) mmol/L Chloride (98-107) mmol/L Carbon Dioxide (22-30) mmol/L Glucose (74-99) mg/dL POC Glucose (mg/dL) (75-99) mg/dL Plasma Lactic Acid Raj (0.7-2.0) mmol/L AST (14-36) U/L Urine Protein Trace H (Negative) Urine Ketones 1+ H (Negative) Urine Blood Trace H (Negative) Urine Mucus Occasional H (None) /hpf U Marijuana (THC) Screen Detected H (NotDetected) Thrombosis Risk Factor Assmnt - Choose All That Apply Any of the Below Risk Factors Present?: Yes Each Factor Represents 1 point: Age 41-60 years, Obesity (BMI >25) Other Risk Factors: No Other congenital or acquired thrombophilia - If yes, enter type in comment: No Thrombosis Risk Factor Assessment Total Risk Factor Score: 2 Thrombosis Risk Factor Assessment Level: Low Risk Assessment and Plan Assessment: Assessment and Plan Acute metabolic encephalopathy likely seizure from possible alcohol use Hypokalemia Lactic acidosis Alcohol abuse with transaminitis with risk of withdrawal CT brain negative. Likely seizure given postictal state and bladder incontinence. Possibly related to alcohol use. Plans: Advanced neurochecks. Fall and seizure precautions. Follow EEG. Follow neurology consultation. Follow PT and OT recommendations. Potassium 3.4. Plans: Replace via protocol. Repeat BMP in the morning. Lactic acid 6.3. Likely due to seizure. Plans: Hydration with normal saline 100 mL per hour. Repeat lactic acid. Plans: CIWA protocol. Ativan as needed for withdrawal. Start thiamine and multivitamin. DVT prophylaxis: [SCD boots] Discussed with: [Patient] Anticipated discharge: [1-2 days] Anticipated discharge place: [Home] A total of [45] minutes was spent on the care of this complex patient more than 50% of the time was spent in counseling and care coordination. Patient names her Raad decision-maker in the case that she can make decisions for herself. Patient reiterates wanting to remain full code at this time. This is anticipated greater than 48 hour admission for new onset seizures.
--- NOTE | 2019-02-09 13:23 | EEG ---
ELECTROENCEPHALOGRAM REPORT PROCEDURE DATE: 02/09/2019 ELECTROENCEPHALOGRAM RECORD EEG) REPORT: TECHNIQUE: A routine 18 channel EEG was performed with video using the 10/20 international electrode placement system. HISTORY: New onset seizure. CURRENT MEDICATIONS: Potassium chloride. STUDY DURATION: 25 minutes. FINDINGS: BACKGROUND: The background activity consisted of 9-10 hertz rhythmic waveforms symmetrically distributed over both posterior quadrants. ACTIVATION: Hyperventilation: Not performed. Photic Stimulation: Symmetric driving seen. Sleep: Stages I and II sleep noted. ABNORMALITIES: None. IMPRESSION: Normal EEG. No epileptiform activity was present. No seizures were recorded. These findings were called to the patient's nurse on 02/09/2019 at 12:53 p.m. MMODL / IJN: [id number] / [facility]Thomas
[2019-02-09 14:03] LABS: African American GFR (CKD) >90 (>60 ml/min/1.73 sqM); Anion Gap 8 mmol/L; Blood Urea Nitrogen 10 mg/dL (7-17); Calcium 9.1 mg/dL (8.4-10.2); Carbon Dioxide 25 mmol/L (22-30); Chloride 108 mmol/L (98-107); Glucose 94 mg/dL (74-99); Non-African American GFR(CKD) >90 (>60 ml/min/1.73 sqM); Sodium 141 mmol/L (137-145)
[2019-02-09 15:43] VITALS: RESP 16
--- NOTE | 2019-02-09 15:54 | P.CNNES ---
History of Present Illness Consult date: 02/09/19 Reason for Consult: Seizure Chief complaint: Found down on the floor with irregular breathing and not waking up History of Present Illness: HISTORY OF PRESENT ILLNESS: Thank you for allowing me to evaluate Ms. Cher Jean-Baptiste. Mrs. Jean-Baptiste is a 53-year-old woman with past medical history of GERD, hype rtension, presenting to [facility] after being found down on the floor with irregular breathing and difficulty waking up by her daughter, consulted neurology for concern for possible seizure. No family is at bedside for corroborating information. Patient states that she had about 7 cans of "naturalized beer" which has minimal EtOH count over 6 hours, last thing she remembers from last night is watching [employer] show around 12:30 am. The next thing she remembers is being in the ambulance. When she initially woke up, she was confused and didn't know answers to most questions the EMS was asking her, but by the time she arrived in ER, she had returned to her baseline mental status. Patient denies every having similar symptoms. She denies having lack of sleep, significant stressors, new medications being started, recent sickness. Endorses urinary incontinence. No bowel incontinence or tongue biting. No abnormal rhythmic movements were observed as patient was found unconscious on the floor by daughter. Patient was born full term, no complications, no meningitis, no hospitalizations, no head trauma, car accidents, falls. PAST MEDICAL HISTORY: GERD, hypertension PAST SURGICAL HISTORY: Adenoidectomy, tonsillectomy, left ankle ORIF HOME MEDICATIONS: Omeprazole, hydrochlorothiazide ALLERGIES: adhesive tape SOCIAL HISTORY: Current every day smoker. Occasional alcohol use. Endorses marijuana use FAMILY HISTORY: father with multiple myeloma. Mother with lymphoma REVIEW OF SYSTEMS: The 14 systems are reviewed and no additional points are identified compared to the review of systems documented history and physical PHYSICAL EXAMINATION: VITAL SIGNS: T 98.5 HR 99 RR 18 BP 145/88 O2 sat 95% on RA GEN.: NAD, pleasant and cooperative HEENT: NCAT, sclera without icterus NECK: Supple SKIN AND EXTREMITIES: Warm to touch, no edema NEURO: MENTAL STATUS: Patient alert and oriented to self, place, time. Able to name the current president. Speech fluent, able to name and repeat, following all commands readily. No right and left disorientation, extinction to double simultaneous stimulation, finger agnosia, neglect. CRANIAL NERVES II THROUGH XII: II: Pupils are equal and reactive to light symmetrically. No afferent pupillary defect. Visual coronel are intact. III, IV, : No ptosis. Extraocular movements full. No nystagmus. V: Facial sensation intact from V1-3. VII. No clear facial asymmetry. VIII: Hearing intact to finger rub bilaterally. IX, X: Symmetric palate elevation. XI: Shoulder shrug intact. XII: Tongue midline without fasciculation or atrophy. MOTOR: Normal bulk/tone. No pronator drift or tremor. Strength is 5/5 throughout all 4 extremities. SENSORY: Intact to light touch, temperature, pinprick in all 4 extremities. Romberg is negative. REFLEXES: 2+ throughout. Toes are downgoing. COORDINATION: Finger to nose intact. No dysmetria. GAIT: Narrow-based and stable. Able to toe/heel/tandem walk DIAGNOSTIC TESTING: LABORATORY: WBC 9.2 hemoglobin 13.8 platelet 196 sodium 134 potassium 2.4 chloride 96 bicarb 18 BUN 13 creatinine 0.63 glucose 145 lactic acid 6.3 AST 58 ALT 52 alk phos 70 urinalysis 1+ ketones trace blood IMAGING: CT head without contrast 02/09/2019: No evidence of acute intracranial pathology. ASSESSMENT: Mrs. Jean-Baptiste is a 53-year-old woman with past medical history of GERD, hypertension, presenting to [facility] after being found down on the floor with irregular breathing and difficulty waking up by her daughter, co nsulted neurology for concern for possible seizure. Patient drinks about 3-4 days per week, yesterday, also had a good amount of beer (although patient states the EtOH content is low). Cannot rule out EtOH withdrawal seizures but also cannot rule out unprovoked seizures. Patient's lactic acid level was elevated, which could result from seizures. This is a first lifetime seizure. Discussed with patient about the option of starting AED and not. Patient is willing to start Keppra. Will start low dose Keppra at 750mg BID. Routine EEG final results pending at this time. If seizures found, will call patient to notify. Patient to follow up with an outpatient neurologist within 1-2 months of discharge. Patient has a PCP, will follow up within 2-3 weeks of discharge. Neurology will sign off at this time. Please call with additional questions or concerns. Past Medical History Past Medical History: GERD/Reflux History of Any Multi-Drug Resistant Organisms: None Reported Past Surgical History: Adenoidectomy, Orthopedic Surgery, Tonsillectomy Additional Past Surgical History / Comment(s): LEFT ANKLE ORIF Past Anesthesia/Blood Transfusion Reactions: Postoperative Nausea & Vomiting (PONV) Additional Past Anesthesia/Blood Transfusion Reaction / Comment(s): POST OP ORIF Past Psychological History: No Psychological Hx Reported Smoking Status: Current every day smoker Past Alcohol Use History: Occasional Past Drug Use History: Marijuana - Past Family History Father Family Medical History: Cancer Additional Family Medical History / Comment(s): MULT. MYELOMA Brother(s) Family Medical History: Cancer Additional Family Medical History / Comment(s): LYMPHOMA Mother Family Medical History: Renal Disease Medications and Allergies Home Medications Medication Instructions Recorded Confirmed Type Hydrochlorothiazide [Hydrodiuril] 25 mg PO DAILY 12/19/18 02/09/19 History Omeprazole [PriLOSEC] 20 mg PO DAILY PRN 12/19/18 02/09/19 History Ibuprofen [Motrin] 800 mg PO Q6H PRN 02/09/19 02/09/19 History Allergies Allergy/AdvReac Type Severity Reaction Status Date / Time adhesive tape AdvReac PEELED SKIN Verified 02/09/19 07:15 Physical Examination - Vital Signs Vital Signs: Vital Signs Temp Pulse Resp BP Pulse Ox 02/09/19 07:00 87 18 127/65 96 02/09/19 06:00 86 18 149/88 97 02/09/19 05:30 89 18 145/84 96 02/09/19 04:54 98.5 F 99 18 145/88 95 Intake and Output 02/08/19 02/09/19 02/09/19 22:59 06:59 14:59 Other: Weight 81.647 kg Results - Laboratory Findings CBC and BMP: 02/09/19 04:57 02/09/19 13:22 Abnormal Lab Findings: Abnormal Labs 02/09/19 02/09/19 02/09/19 04:57 04:57 05:00 Sodium 134 L Potassium 3.4 L Chloride 96 L Carbon Dioxide 18 L Glucose 145 H POC Glucose (mg/dL) 146 H Plasma Lactic Acid Raj 6.3 H* AST 58 H Urine Protein Urine Ketones Urine Blood Urine Mucus U Marijuana (THC) Screen 02/09/19 02/09/19 05:23 05:23 Sodium Potassium Chloride Carbon Dioxide Glucose POC Glucose (mg/dL) Plasma Lactic Acid Raj AST Urine Protein Trace H Urine Ketones 1+ H Urine Blood Trace H Urine Mucus Occasional H U Marijuana (THC) Screen Detected H
[2019-02-09] MEDS: THIAMINE 100 MG TAB PO SCH (17:02)
[2019-02-10 04:36] VITALS: BP 117/63; PULSE 71; TEMP 97.3
[2019-02-10] MEDS: SODIUM CHLORIDE 0.9% 1,000 ML IV SCH (05:50)
[2019-02-10] MEDS ORDERED: MULTIVITAMINS, THERA 1 EACH TAB PO SCH (09:00)
[2019-02-10] MEDS: THIAMINE 100 MG TAB PO SCH (09:09)
--- NOTE | 2019-02-10 09:44 | P.DS ---
Providers Date of admission: 02/09/19 06:33 Expected date of discharge: 02/10/19 Attending physician: Fernando Jenkins MD Consults: 02/09/19 06:33 Consult Physician Urgent Consulting Provider: Marva Villaseñor Consult Reason/Comments: new onset seizure Do you want consulting provider notified?: Yes, Notify in am Primary care physician: [facility] Course: 53-year-old female with PMH of hypertension and diverticulosis presents to the ED for altered mental status. Patient does not remember any of the events prior to admission. Patient states the last thing that she remembers was laying down on the couch and watching [place]. Apparently, her daughter heard a thump and attended to her mother. Patient was found down with irregular breathing. Patient also reports that she had one episode of bladder incontinence during this time. Of note, patient reports drinking 3-4 times a week, 7-8 beers each time. She denies any illicit drug use. Patient denies any recent stressors. She denies any insomnia. In the ED, her vital signs were stable. CBC was unremarkable. CMP showed sodium of 134, potassium 3.4, chloride 96, bicarbonate 18, glucose 145. Lactic acid was 6.3. AST was 58. Urinalysis showed trace blood. UDS positive for marijuana. CT brain negative. EKG showed normal sinus rhythm with ST changes. Patient is admitted for new onset seizure with neurology on consult. Patient was placed on advance neuro checks, fall and seizure precautions. She was placed on CIWA protocol and given Ativan as needed for withdrawal. She was started on thiamine and multivitamin for her history of alcohol abuse. EEG was obtained which was within normal limits. Neurology was consulted and recommended starting patient on Keppra. PT and OT cleared the patient for discharge. Patient had a low potassium of 3.4 on admission which was corrected at the time of discharge. Her lactic acid on repeat was within normal limits. Patient was seen and examined. No acute events overnight. No more seizure-like activity. She denies any chest pain, shortness of breath or palpitations. No nausea or vomiting. No fever or chills. General: [non toxic], [no distress], [appears at stated age] Derm: [warm], [dry] Head: [atraumatic], [normocephalic], [symmetric] Eyes: [EOMI], [no lid lag], [anicteric sclera] Mouth: [no lip lesion], [mucus membranes moist] Cardiovascular: [S1S2 reg], [no murmur], [positive DP pulse bilateral], Lungs: [CTA bilateral], [no rhonchi, no rales] , [no accessory muscle use] Abdominal: [soft], [ nontender to palpation], [no guarding], [no appreciable organomegaly] Ext: [no gross muscle atrophy], [no edema], [no contractures] Neuro: [ CN II-XI grossly intact], [no focal neuro deficits] Psych: [Alert], [oriented], [appropriate affect] Assessment and Plan Acute metabolic encephalopathy likely seizure from possible alcohol use Alcohol abuse with transaminitis with risk of withdrawal Result: Hypokalemia, lactic acid CT brain negative. Likely seizure given postictal state and bladder incontinence. Possibly related to alcohol use. Plans: Advanced neurochecks. Fall and seizure precautions. Follow EEG. Follow neurology consultation. Follow PT and OT recommendations. Plans: CIWA protocol. Ativan as needed for withdrawal. Start thiamine and multivitamin. [Advised the patient should not be driving for 6 months, states that she does not have a license. Follow-up PCP within 3 days of discharge. Follow-up neurology within 1 week of discharge. This complex discharge took about 35 minutes to complete.] Pertinent Studies: CT brain, EEG Patient Condition at Discharge: Stable Plan - Discharge Summary Discharge Rx Participant: Yes New Discharge Prescriptions: New levETIRAcetam [Keppra] 750 mg PO Q12HR #60 tab Multivitamins, Thera [Multivitamin (formulary)] 1 each PO DAILY tab Thiamine [Vitamin B-1] 100 mg PO BID-W/MEALS #60 tab Continue Omeprazole [PriLOSEC] 20 mg PO DAILY PRN PRN Reason: Gi Upset Hydrochlorothiazide [Hydrodiuril] 25 mg PO DAILY Ibuprofen [Motrin] 800 mg PO Q6H PRN PRN Reason: Pain Discharge Medication List Hydrochlorothiazide [Hydrodiuril] 25 mg PO DAILY 12/19/18 [History] Omeprazole [PriLOSEC] 20 mg PO DAILY PRN 12/19/18 [History] Ibuprofen [Motrin] 800 mg PO Q6H PRN 02/09/19 [History] Multivitamins, Thera [Multivitamin (formulary)] 1 each PO DAILY tab 02/10/19 [Rx] Thiamine [Vitamin B-1] 100 mg PO BID-W/MEALS #60 tab 02/10/19 [Rx] levETIRAcetam [Keppra] 750 mg PO Q12HR #60 tab 02/10/19 [Rx] Follow up Appointment(s)/Referral(s): Orion Jernigan DO [Primary Care Provider] - 1 Week Chelo Kang MD [Medical Doctor] - 2 Weeks Activity/Diet/Wound Care/Special Instructions: Diet: Low-salt Follow-up PCP within 3 days of discharge. Follow-up neurology within 2 weeks of discharge. Take all medications as advised. You will need to see PCP for refills on Keppra. Please do not drive until instructed by your neurologist.
== END 2019-02-10 10:40 | disposition home or self-care (01) | DRG 101 ==
LOC: EC 04:51 → 4MS4W 06:33
PROVIDERS: ADMIT Family Medicine; ATTEND Family Medicine
DX: R56.9 Unspecified convulsions (principal); E87.2 Acidosis; E87.6 Hypokalemia; R32 Unspecified urinary incontinence; M19.042 Primary osteoarthritis, left hand; M19.041 Primary osteoarthritis, right hand; M47.9 Spondylosis, unspecified; F17.210 Nicotine dependence, cigarettes, uncomplicated; I10 Essential (primary) hypertension; K21.9 Gastro-esophageal reflux disease without esophagitis; Z79.899 Other long term (current) drug therapy; Z80.7 Family history of other malignant neoplasms of lymphoid, hematopoietic and related tissues; F10.10 Alcohol abuse, uncomplicated; Z88.8 Allergy status to other drugs, medicaments and biological substances; R74.0 Nonspecific elevation of levels of transaminase and lactic acid dehydrogenase [LDH]; Z84.1 Family history of disorders of kidney and ureter; K57.90 Diverticulosis of intestine, part unspecified, without perforation or abscess without bleeding
CPT/HCPCS: 36415; 70450; 80048; 80053; 80306; 81001; 83605; 85025; 90686; 90732; 95819; 96360; 99285

== ENCOUNTER 2019-03-20 11:53 | Day surgery (SDC) | payer BC ==
[2019-03-15 14:50] VITALS: BMI 32.5
[~2019-03-20 11:53] MED LIST changes: -DEXAMETHASONE SOD PHOSPHATE 10 MG/ML 1 ML VIAL IV ONE; -HYDROmorphone 1 MG/ML 1 ML SYRINGE IVP PRN; +LIDOCAINE 1% 20 ML VIAL (10MG/ML) FOR IV START INTRADERMA PRN; -MIDAZOLAM 2 MG/2 ML VIAL IV PRN; -ONDANSETRON 4 MG/2 ML VIAL IVP ONE; -Pre Op ABX Message 1 EACH MISC MISCELLANE ONE; -SCOPOLAMINE 1.5MG/72HR PATCH TRANSDERM ONE
[2019-03-20 12:20] VITALS: TEMP 98.5
[2019-03-20] MEDS ORDERED: PROPOFOL 10 MG/ML 20 ML VIAL IV ONE (13:22)
--- NOTE | 2019-03-20 14:07 | P.PCN ---
Date of Procedure: 03/20/19 Description of Procedure: BRIEF HISTORY: Patient is a 53-year-old female who presents for outpatient colonoscopy for evaluation after recent episode of diverticulitis. She reports being treated at the urgent care with antibiotic therapy which she is completed. Ferritin change in bowel habits or blood per rectum. Last colonoscopy approximately 4 years ago per her recollection. PROCEDURE PERFORMED: Failed/aborted Colonoscopy. PREOPERATIVE DIAGNOSIS: Diverticulitis, last colonoscopy approximately 4 years ago. ESTIMATED BLOOD LOSS: Minimal. IV sedation per Anesthesia. PROCEDURE: After informed consent was obtained, the patient, was brought into the endoscopy unit. IV sedation was administered by Anesthesia under continuous monitoring. Digital rectal examination was normal. Initially the Olympus CF-190 flexible video colonoscope was then inserted in the rectum, and gradually advanced to the sigmoid colon however the video colonoscope could not be advanced due to a tortuous, fixed sigmoid colon with diverticula noted. At this time the scope was removed and a pediatric scope was inserted into the rectum and gradually advanced to the sigmoid colon again approximately 30 minutes of time was spent trying to traverse the sigmoid colon which could not be performed secondary to a fixed sigmoid. The scope was withdrawn at this time and the procedure aborted. Retroflexion was performed in the rectum and no lesions were seen. The patient tolerated the procedure well. IMPRESSION: Failed/aborted colonoscopy secondary to a fixed/tortuous sigmoid colon in the setting of diverticular disease. RECOMMENDATIONS: Findings of this examination were discussed with the patient and her family. At this time would recommend air contrast barium enema for further evaluation. Order will be given the patient proceed with the study.
[2019-03-20 14:09] VITALS: RESP 16
[2019-03-20 14:25] VITALS: BP 117/75; PULSE 69
== END 2019-03-20 14:40 | disposition home or self-care (01) ==
LOC: ORWHC2ENDO 11:53
PROVIDERS: ATTEND Internal Medicine
DX: K57.30 Diverticulosis of large intestine without perforation or abscess without bleeding (principal); Q43.8 Other specified congenital malformations of intestine; I10 Essential (primary) hypertension; F39 Unspecified mood [affective] disorder; K21.9 Gastro-esophageal reflux disease without esophagitis; K08.89 Other specified disorders of teeth and supporting structures; F17.200 Nicotine dependence, unspecified, uncomplicated; Z91.048 Other nonmedicinal substance allergy status; Z79.899 Other long term (current) drug therapy; Z79.1 Long term (current) use of non-steroidal anti-inflammatories (NSAID); Z90.89 Acquired absence of other organs; Z98.890 Other specified postprocedural states; Z87.81 Personal history of (healed) traumatic fracture; Z87.898 Personal history of other specified conditions
CPT/HCPCS: J2704; G0104; 45378

== ENCOUNTER → 2020-12-03 | Outpatient (CLI) | payer BC ==
[2020-12-03 22:36] LABS: Basophils # (A) 0.06 X 10*3/uL (0.00-0.10); Basophils % (A) 0.7 %; Eosinophils % (A) 2.2 %; HCT 44.3 % (37.2-46.3); HGB 14.3 g/dL (12.0-15.0); Lymphocytes # (A) 2.22 X 10*3/uL (0.90-5.00); Lymphocytes % (A) 24.8 %; MCH 29.9 pg (27.0-32.0); MCHC 32.3 g/dL (32.0-37.0); MCV 92.7 fL (80.0-97.0); Mean Platelet Volume 11.4 fL (9.5-12.2); Monocytes # (A) 0.67 X 10*3/uL (0.20-1.00); Monocytes % (A) 7.5 %; Neutrophils # (A) 5.78 X 10*3/uL (1.80-7.70); Neutrophils % (A) 64.5 %; Platelet Count 208 X 10*3/uL (140-440); RBC 4.78 X 10*6/uL (4.10-5.20); RDW 14.6 % (11.5-14.5); WBC 8.96 X 10*3/uL (4.50-10.00)
[2020-12-04 06:03] LABS: African American GFR (CKD) 112.3 (60.0-200.0); Albumin 4.9 g/dL (3.80-4.90); Albumin/Globulin Ratio 1.69 (1.60-3.17); Anion Gap 9.6 mmol/L (4.00-12.00); BUN/Creat Ratio 21.43 Ratio (12.00-20.00); Calcium 9.5 mg/dL (8.7-10.3); Carbon Dioxide 26.4 mmol/L (21.6-31.8); Chol/HDL Ratio 3.82; Globulin 2.9 g/dL (1.6-3.3); Non-African American GFR(CKD) 96.9 (60.0-200.0); Potassium 3.6 mmol/L (3.5-5.5); Total Bilirubin 0.5 mg/dL (0.2-1.2); Total Protein 7.8 g/dL (6.2-8.2)
== END | disposition home or self-care (01) ==
LOC: LABWHC1 15:55
PROVIDERS: ATTEND Nurse Practitioner Family
DX: E55.9 Vitamin D deficiency, unspecified (principal); K21.9 Gastro-esophageal reflux disease without esophagitis; I10 Essential (primary) hypertension; R56.9 Unspecified convulsions
CPT/HCPCS: 36415; 80053; 80061; 82306; 83735; 84443; 85025

== ENCOUNTER → 2021-01-28 | Outpatient (CLI) | payer BC ==
--- NOTE | 2021-01-29 07:42 | CTL ---
EXAMINATION TYPE: CT Low Dose Lung DATE OF EXAM ORDERED: 01/28/2021 HISTORY: Long-term tobacco use. Lung cancer screening CT DLP: 77.[address] CTDI: 2.3 mGy Automated exposure control for dose reduction was used. SCREENING VISIT: Baseline COMPARISON: None TECHNIQUE: Low dose computed tomography scan was performed through the chest at 1 mm thick sections a nd reconstructed images in the coronal plane at [address] DIAGNOSTIC QUALITY: Satisfactory FINDINGS: LUNG NODULES: None. LUNGS: COPD: Severity: None Fibrosis: Severity: Bilateral mild scattered Lymph nodes: None Other findings: None RIGHT PLEURAL SPACE: Effusion: None Calcification: None Thickening: None Pneumothorax: None LEFT PLEURAL SPACE: Effusion: None Calcification: None Thickening: None Pneumothorax: None HEART: Heart Size: Mildly enlarged Coronary calcification: None Pericardial effusion: None OTHER FINDINGS: Upper abdomen: None Bony thorax: Exaggerated thoracic kyphosis with mild to moderate multilevel anterior and lateral spur ring. Slight scoliotic curvature on the coronal images. Supraclavicular region: Normal. Other: Prominent borderline enlarged left axillary lymph nodes near axial image 8 series 5. IMPRESSION: No suspicious nodules. CT LUNG RAD AND CT CHEST RECOMMENDATION: Lung-Rad 1 Negative: Continue annual screening with LDCT in 12 months. S Modifier (other clinically significant findings): None
== END | disposition home or self-care (01) ==
LOC: RADCTMAIN 17:22
PROVIDERS: ATTEND Family Medicine
DX: Z12.2 Encounter for screening for malignant neoplasm of respiratory organs (principal); Z72.0 Tobacco use
CPT/HCPCS: 71271

== ENCOUNTER → 2022-01-08 | Outpatient (CLI) | payer BC ==
[2022-01-09 01:42] LABS: ALT 19 U/L (8-44); AST 26 U/L (13-35); African American GFR (CKD) 112.4 (60.0-200.0); Albumin 4.9 g/dL (3.8-4.9); Albumin/Globulin Ratio 2.02 (1.60-3.17); Alkaline Phosphatase 63 U/L (41-126); BUN/Creat Ratio 27.27 Ratio (12.00-20.00); Blood Urea Nitrogen 18.6 mg/dL (9.0-27.0); Calcium 10.3 mg/dL (8.7-10.3); Carbon Dioxide 27.2 mmol/L (20.0-27.5); Chloride 102 mmol/L (96-109); Chol/HDL Ratio 2.86 Ratio; Globulin 2.4 g/dL (1.6-3.3); Glucose 85 mg/dL (70-110); LDL Cholesterol,Calculated 97.6 mg/dL (0.0-131.0); Magnesium 2.1 mg/dL (1.5-2.4); Potassium 3.9 mmol/L (3.5-5.5); Sodium 142 mmol/L (135-145); Total Protein 7.3 g/dL (6.2-8.2); VLDL Calculation 18.14 mg/dL (5.00-40.00)
[2022-01-09 01:50] LABS: Basophils # (A) 0.06 X 10*3/uL (0.00-0.10); Basophils % (A) 0.7 %; Eosinophils # (A) 0.22 X 10*3/uL (0.04-0.35); Eosinophils % (A) 2.4 %; HCT 43.9 % (37.2-46.3); HGB 14.1 g/dL (12.0-15.0); Immature Grans, Automated 0.2 %; Lymphocytes # (A) 2.72 X 10*3/uL (0.90-5.00); Lymphocytes % (A) 29.6 %; MCH 29.6 pg (27.0-32.0); MCHC 32.1 g/dL (32.0-37.0); Mean Platelet Volume 11.7 fL (9.5-12.2); Monocytes # (A) 0.66 X 10*3/uL (0.20-1.00); Monocytes % (A) 7.2 %; NRBC Per 100 WBC 0 /100 WBCS (0.0-0.0); Neutrophils % (A) 59.9 %; Platelet Count 221 X 10*3/uL (140-440); RBC 4.77 X 10*6/uL (4.10-5.20); RDW 14.3 % (11.5-14.5); WBC 9.18 X 10*3/uL (4.50-10.00)
== END | disposition home or self-care (01) ==
LOC: LABWHC1 15:49
PROVIDERS: ATTEND Family Medicine
DX: I10 Essential (primary) hypertension (principal); E55.9 Vitamin D deficiency, unspecified
CPT/HCPCS: 36415; 80053; 80061; 82306; 83735; 84443; 85025

== ENCOUNTER → 2023-10-12 | Outpatient (CLI) | payer BC ==
[2023-10-13 01:54] LABS: Basophils # (A) 0.05 X 10*3/uL (0.00-0.10); Basophils % (A) 0.6 %; Eosinophils # (A) 0.22 X 10*3/uL (0.04-0.35); Eosinophils % (A) 2.5 %; HCT 38.4 % (37.2-46.3); Lymphocytes # (A) 2.64 X 10*3/uL (0.90-5.00); Lymphocytes % (A) 30.6 %; MCH 28.6 pg (27.0-32.0); MCHC 31.3 g/dL (32.0-37.0); MCV 91.4 FL (80.0-97.0); Mean Platelet Volume 11.7 FL (9.5-12.2); NRBC Per 100 WBC 0 X 10*3/uL (0.00-0.01); Neutrophils # (A) 5.09 X 10*3/uL (1.80-7.70); Platelet Count 183 X 10*3/uL (140-440); RDW 14.7 % (11.5-14.5); WBC 8.63 X 10*3/uL (4.50-10.00)
[2023-10-13 02:33] LABS: ALT 20 U/L (8-44); AST 23 U/L (13-35); Albumin 4.4 g/dL (3.8-4.9); Albumin/Globulin Ratio 1.83 Ratio (1.60-3.17); Alkaline Phosphatase 75 U/L (41-126); Blood Urea Nitrogen 16.9 mg/dL (9.0-27.0); Calcium 8.8 mg/dL (8.7-10.3); Carbon Dioxide 23.6 mmol/L (21.6-31.8); Chloride 107 mmol/L (96-109); Globulin 2.4 g/dL (1.6-3.3); Glucose 101 mg/dL (70-110); Magnesium 1.9 mg/dL (1.5-2.4); Potassium 3.8 mmol/L (3.5-5.5); Sodium 142 mmol/L (135-145); Total Bilirubin 0.2 mg/dL (0.3-1.2); Total Protein 6.8 g/dL (6.2-8.2)
== END | disposition home or self-care (01) ==
LOC: LABWHC1 15:44
PROVIDERS: ATTEND Family Medicine
DX: I10 Essential (primary) hypertension (principal)
CPT/HCPCS: 36415; 80053; 83735; 85025